=== PATIENT | female | born 1975 | race Hispanic/Latino ===

== ENCOUNTER 2016-06-01 12:52 | Emergency (ER) | payer OTHER ==
[2016-06-01] MEDS ORDERED: NORCO 5/325 PO ONE (16:48)
[2016-06-01] MEDS ORDERED: TORADOL IM ONE (16:48)
--- NOTE | 2016-06-01 16:51 | Emergency Department Report ---
HPI - General Chief Complaint: Fever Time Seen by Provider: 06/01/16 16:27 - HPI HPI: 40-year-old female presents today with bodyaches fatigue, fever, headache, 1 episode of vomiting since last night. Tmax = 102. Also admits to cough, nasal congestion, chills. Patient tried Tylenol without relief, last dose at 1100 hrs. Patient states that she has history of anxiety and is feeling anxious at this time. Patient takes Klonopin 0.5 mg. Denies history of similar symptoms. Patient states that she has not gotten her flu shot this year. Denies chest pain, shortness of breath, abdominal pain. Patient states that she may have a viral infection and would like something for her body aches. ED Past Medical Hx - Past Medical History Previous Medical History?: Yes Hx Psychiatric Treatment: Yes (PTSD, bipolar) - Surgical History Past Surgical History?: No - Social History Smoking Status: Never Smoker Substance Use Type: None - Medications Home Medications: Home Medications Medication Instructions Recorded Confirmed Last Taken Type Ketorolac [Toradol] 10 mg PO Q6H PRN #14 tablet 06/01/16 Unknown Rx Ondansetron [Zofran Odt] 4 mg PO TID #10 tab.rapdis 06/01/16 Unknown Rx ED Review of Systems ROS: Stated complaint: FEVER/COUGH/BODY ACHE/FATIGUE Other details as noted in HPI Constitutional: chills, fever, malaise Eyes: denies: eye pain ENT: congestion. denies: ear pain, throat pain Respiratory: cough Cardiovascular: denies: chest pain, palpitations Endocrine: no symptoms reported Gastrointestinal: vomiting. denies: abdominal pain Neurological: headache. denies: weakness, numbness, paresthesias Physical Exam - Physical Exam Vital Signs: Vital Signs 06/01/16 13:00 Temperature 97.9 F Pulse Rate 111 H Respiratory 18 Rate Blood Pressure 118/75 O2 Sat by Pulse 98 Oximetry Physical Exam: GENERAL: The patient is well-developed and well-nourished. Patient is in NAD. HEAD: Normocephalic. Atraumatic. EYES: Extraocular motions are intact, PERRL. EARS: External auditory canals and tympanic membranes clear; hearing grossly intact. NOSE: Normal nasal mucosa with no nasal discharge. THROAT: No erythema, swelling or exudates. NECK: Supple, nontender, without lymphadenopathy. No meningitic signs are noted. CHEST/LUNGS: Clear to auscultation throughout. HEART/CARDIOVASCULAR: Regular rate and rhythm. ABDOMEN: Abdomen is soft, nontender. No guarding or rebound tenderness. EXTREMITIES: Peripheral pulses intact. Capillary refill less than 2 seconds. NEURO: Alert and oriented 3, normal gait, fluid speech, EOMs intact, normal facial sensation, strength exam 5/5 upper and lower extremities, GCS equals 15, finger to nose normal, negative Romberg test. ED Course Vital Signs 06/01/16 13:00 Temperature 97.9 F Pulse Rate 111 H Respiratory 18 Rate Blood Pressure 118/75 O2 Sat by Pulse 98 Oximetry ED Medical Decision Making - Medical Decision Making 40-year-old female presents today with headache, body aches, fever. Patient states that she does not think she has the flu and refuses rapid flu test. Her physical exam is unremarkable. Patient reports 100% symptomatic relief post medication. Patient requests Toradol for home prescription. Patient is in no acute distress at this time. She will be discharged home and is encouraged to follow up with a primary care provider. He will be sent home on Toradol and Zofran and is encouraged to return to the emergency room for any worsening symptoms. Critical care attestation.: If time is entered above; I have spent that time in minutes in the direct care of this critically ill patient, excluding procedure time. ED Disposition Clinical Impression: Body aches Disposition: DISCHARGED TO HOME OR SELFCARE Is pt being admited?: No Does the pt Need Aspirin: No Condition: Stable Instructions: Viral Syndrome (ED), Acute Nausea and Vomiting (ED) Additional Instructions: Follow-up with primary care provider. Return to the emergency department if symptoms worsen. Prescriptions: Ketorolac [Toradol] 10 mg PO Q6H PRN #14 tablet PRN Reason: Pain Ondansetron [Zofran Odt] 4 mg PO TID #10 tab.rapdis Referrals: PRIMARY CARE, [Primary Care Provider] - 3-5 Days [facility] [Outside] - 3-5 Days Forms: Work/School Release Form(ED), Accompanied Note Time of Disposition: 17:52
[2016-06-01 18:06] VITALS: BP 120/78
== END 2016-06-01 18:05 | disposition home or self-care (01) ==
LOC: ED 12:52
DX: M79.1 Myalgia (principal); F31.9 Bipolar disorder, unspecified; F43.10 Post-traumatic stress disorder, unspecified
CPT/HCPCS: 96372; 99282; J1885

== ENCOUNTER 2016-06-01 21:06 | Emergency (ER) | payer MEDICAID, OTHER ==
[2016-06-01 22:11] LABS: Bacteria,Urine 1+ /HPF (Negative); Bilirubin,Urine NEG (Negative); Blood,Urine NEG (Negative); Ketones,Urine NEG (Negative); Leukocyte Esterase,Urine NEG (Negative); Nitrite,Urine NEG (Negative); Protein,Urine <15 mg/dL mg/dL (Negative); Urobilinogen,Urine < 2.0 mg/dL (<2.0)
[2016-06-01 22:22] LABS: Basophils % (Auto) 0.6 % (0.0-1.8); Hematocrit 38.5 % (30.3-42.9); Hemoglobin 13.2 gm/dl (10.1-14.3); Mean Corpuscular HGB Conc 34 % (30-34); Mean Corpuscular Hemoglobin 33 pg (28-32); Mean Corpuscular Volume 95 fl (79-97); Platelet Count 276 K/mm3 (140-440); Red Blood Count 4.04 M/mm3 (3.65-5.03); Red Cell Distribution Width 13.4 % (13.2-15.2); White Blood Count 9.5 K/mm3 (4.5-11.0)
[2016-06-01 22:40] LABS: Blood Urea Nitrogen 14 mg/dL (7-17); Calcium 9.1 mg/dL (8.4-10.2); Carbon Dioxide 29 mmol/L (22-30); Chloride 98.2 mmol/L (98-107); Glucose 103 mg/dL (65-100); Potassium 3.6 mmol/L (3.6-5.0); Sodium 141 mmol/L (137-145)
[2016-06-01 22:51] LABS: Anion Gap 17 mmol/L
[2016-06-02 01:05] VITALS: BP 113/63
[2016-06-02] MEDS ORDERED: NACL 0.9% 1000 ML 1,000 ML IV ONE (02:11)
[2016-06-02] MEDS ORDERED: PERCOCET 5/325 PO ONE (02:11)
[2016-06-02] MEDS ORDERED: ZOFRAN IV ONE (02:12)
--- NOTE | 2016-06-02 02:18 | Emergency Department Report ---
ED General Adult HPI - General Chief complaint: Pain General Stated complaint: FLU LIKE SYMPTOMS Time Seen by Provider: 06/02/16 01:48 Source: patient Mode of arrival: Ambulatory Limitations: No Limitations - History of Present Illness Initial comments: Patient reports three-day history of cough mild congestion and mild sore throat and fever. she is having severe body aches. She was seen this morning and was given Toradol with subjective improvement. She indicates over the course of the day though that her fevers returned and she is feeling quite uncomfortable. She has not taken anything recently for pain or for fever. She feels nauseated as well. Onset/Timin -: days(s) Location: lower extremity Radiation: non-radiation Severity scale (0 -10): 8 Quality: aching Consistency: constant Improves with: none Worsens with: none Treatments Prior to Arrival: none - Related Data Previous Rx's Medication Instructions Recorded Last Taken Type Ketorolac [Toradol] 10 mg PO Q6H PRN #14 tablet 06/01/16 Unknown Rx Ondansetron [Zofran Odt] 4 mg PO TID #10 tab.rapdis 06/01/16 Unknown Rx HYDROcodone/APAP 5-325 [[place] 2 each PO Q6HR #20 tablet 06/02/16 Unknown Rx 5/325] Allergies Allergy/AdvReac Type Severity Reaction Status Date / Time diphenhydramine HCl AdvReac Unknown Verified 06/01/16 13:03 [From [place]] ED Review of Systems ROS: Stated complaint: FLU LIKE SYMPTOMS Other details as noted in HPI Constitutional: chills, fever, malaise Eyes: denies: eye pain, eye discharge, vision change ENT: throat pain. denies: ear pain Respiratory: cough. denies: shortness of breath, wheezing Cardiovascular: denies: chest pain, palpitations Endocrine: no symptoms reported Gastrointestinal: denies: abdominal pain, nausea, diarrhea Genitourinary: denies: urgency, dysuria, discharge Musculoskeletal: myalgia. denies: back pain, joint swelling, arthralgia Skin: denies: rash, lesions Neurological: denies: headache, weakness, paresthesias Psychiatric: denies: anxiety, depression Hematological/Lymphatic: denies: easy bleeding, easy bruising ED Past Medical Hx - Past Medical History Hx Psychiatric Treatment: Yes (PTSD, vladimir,depression) Additional medical history: multiple sclorsis - Surgical History Past Surgical History?: No - Social History Smoking Status: Former Smoker Substance Use Type: None - Medications Home Medications: Home Medications Medication Instructions Recorded Confirmed Last Taken Type Ketorolac [Toradol] 10 mg PO Q6H PRN #14 tablet 06/01/16 Unknown Rx Ondansetron [Zofran Odt] 4 mg PO TID #10 tab.rapdis 06/01/16 Unknown Rx HYDROcodone/APAP 5-325 [[place] 2 each PO Q6HR #20 tablet 06/02/16 Unknown Rx 5/325] ED Physical Exam - General Limitations: No Limitations General appearance: alert, in distress (mild due to body pains) - Head Head exam: Present: atraumatic, normocephalic - Eye Eye exam: Present: normal appearance, EOMI. Absent: scleral icterus - ENT ENT exam: Present: mucous membranes moist, other (mild pharyngeal edema) - Neck Neck exam: Present: normal inspection. Absent: tenderness, lymphadenopathy, thyromegaly - Respiratory Respiratory exam: Present: normal lung sounds bilaterally, other (harsh cough). Absent: respiratory distress - Cardiovascular Cardiovascular Exam: Present: regular rate, normal rhythm. Absent: systolic murmur, diastolic murmur, rubs, gallop - GI/Abdominal GI/Abdominal exam: Present: soft, normal bowel sounds - Extremities Exam Extremities exam: Present: normal inspection, other (mild tenderness to large group muscles) - Back Exam Back exam: Present: normal inspection - Neurological Exam Neurological exam: Present: alert, oriented X3 - Psychiatric Psychiatric exam: Present: normal affect, normal mood - Skin Skin exam: Present: warm, dry, intact, normal color. Absent: rash ED Course Vital Signs 06/01/16 06/02/16 06/02/16 21:13 01:03 01:05 Temperature 99.2 F 102.8 F H Pulse Rate 112 H 118 H Respiratory 18 20 Rate Blood Pressure 112/71 Blood Pressure 113/63 [Left] O2 Sat by Pulse 100 100 100 Oximetry - Reevaluation(s) Reevaluation #1: 06/02/16 02:16 Patient is uncomfortable appearing here. She appears to have a viral syndrome. I suspect influenza. She has outside of the treatment window. I will not test directly for influenza. Given symptomatic treatment here. We'll send home with some pain medication. Labs are noted here. No specific abnormalities appreciated. Patient did spike fever here was given Percocet for fever/pain 06/02/16 02:17 06/02/16 05:50 Subjectively much improved at the time of discharge. Comfortable pacing around the sears. ED Medical Decision Making - Lab Data Result diagrams: 06/01/16 21:32 06/01/16 21:32 - Radiology Data interpreted by me: Negative for acute pathology. No infiltrate and normal cardiac silhouette. Critical care attestation.: If time is entered above; I have spent that time in minutes in the direct care of this critically ill patient, excluding procedure time. ED Disposition Clinical Impression: Acute viral syndrome, Body aches Disposition: DISCHARGED TO HOME OR SELFCARE Is pt being admited?: No Does the pt Need Aspirin: No Condition: Stable Instructions: Influenza (ED) Additional Instructions: Drink plenty of fluids. Rest. Take Tylenol as needed for fever or [place] as needed for fever. [place] does have Tylenol in it. Prescriptions: HYDROcodone/APAP 5-325 [[place] 5/325] 2 each PO Q6HR #20 tablet Referrals: PRIMARY CARE, [Primary Care Provider] - 3-5 Days Forms: Work/School Release Form(ED) Time of Disposition: 03:40
--- NOTE | 2016-06-02 07:35 | XRay Report ---
ROUTINE CHEST, TWO VIEWS: HISTORY: Cough. The trachea, heart, mediastinal contour, lung rucker and bony thorax are unremarkable. IMPRESSION: Unremarkable chest x-ray.
== END 2016-06-02 04:50 | disposition home or self-care (01) ==
LOC: ED 21:06
DX: B34.9 Viral infection, unspecified (principal); M79.1 Myalgia; Z87.891 Personal history of nicotine dependence
CPT/HCPCS: 36415; 71020; 80048; 81001; 81025; 85025; 96361; 96374; 99284; J2405; J7030

== ENCOUNTER 2016-06-07 14:49 | Emergency (ER) | payer MEDICAID, OTHER ==
[2016-06-07 15:55] VITALS: BP 106/62
[2016-06-07] MEDS ORDERED: TORADOL IM ONE (16:43)
--- NOTE | 2016-06-07 16:49 | Emergency Department Report ---
HPI - General Chief Complaint: Upper Respiratory Infection Time Seen by Provider: 06/07/16 16:19 - HPI HPI: 40 y/o female complain of generalized body ache x 2 weeks .pt was seen on jun 02, 2015 and was told she had the flu .pt state that she continue to ache and has run out of pain medication. pt was given norco 10mg .pt denies any chest pain .denies any n/v/d at present .denies any acute distress at [facility] ED Past Medical Hx - Past Medical History Hx Psychiatric Treatment: Yes (PTSD, vladimir,depression) Additional medical history: multiple sclorsis - Social History Smoking Status: Former Smoker Substance Use Type: None - Medications Home Medications: Home Medications Medication Instructions Recorded Confirmed Last Taken Type Ketorolac [Toradol] 10 mg PO Q6H PRN #14 tablet 06/01/16 Unknown Rx Ondansetron [Zofran Odt] 4 mg PO TID #10 tab.rapdis 06/01/16 Unknown Rx HYDROcodone/APAP 5-325 [[place] 2 each PO Q6HR #20 tablet 06/02/16 Unknown Rx 5/325] Acetaminophen/Codeine [Tylenol #3] 1 tab PO Q4HR PRN #10 tablet 06/07/16 Unknown Rx ED Review of Systems ROS: Stated complaint: FLU/PAIN/CONGESTION Other details as noted in HPI Constitutional: other (generalized body ache ). denies: chills, fever Eyes: denies: eye pain, eye discharge, vision change ENT: denies: ear pain, throat pain Respiratory: denies: cough, shortness of breath, wheezing Cardiovascular: denies: chest pain, palpitations Endocrine: no symptoms reported Gastrointestinal: denies: abdominal pain, nausea, diarrhea Genitourinary: denies: urgency, dysuria, discharge Musculoskeletal: denies: back pain, joint swelling, arthralgia Skin: denies: rash, lesions Neurological: denies: headache, weakness, paresthesias Psychiatric: denies: anxiety, depression Hematological/Lymphatic: denies: easy bleeding, easy bruising Physical Exam - Physical Exam Vital Signs: Vital Signs 06/07/16 15:52 Temperature 98 F Pulse Rate 76 Respiratory 18 Rate Blood Pressure 106/62 O2 Sat by Pulse 100 Oximetry Physical Exam: GENERAL: The patient is well-developed and well-nourished. Patient is in NAD. HENT: Normocephalic. Atraumatic. Patient has moist mucous membranes. Throat: No erythema, swelling or exudates. Ears:Tympanic membranes pearly [place] ,intact , and free of exudate and erythema . EYES: Extraocular motions are intact, PERRL NECK: Supple. No meningitic signs are noted. There is no adenopathy noted. CHEST/LUNGS: Clear to auscultation bilaterally. No wheezing, rales or rhonchi noted. There is no respiratory distress noted. HEART/CARDIOVASCULAR: Regular rate and rhythm. Normal S1 S2. No murmurs, rubs , clicks, or gallops. ABDOMEN: Abdomen is soft, nontender.. Bowel sounds normoactive. There is no abdominal distention. Negative rebound tenderness. : Deferred. SKIN: There is no rash. There is no edema. There is no diaphoresis.Normal skin turgor NEURO: The patient is A&Ox3. The patient has no focal neurologic deficits. MUSCULOSKELETAL: There is no tenderness or deformity. There is no limitation range of motion. posture erect.Spine aligned,no deformities. PSYCH: Pt has appropriate mood and affect. ED Course Vital Signs 06/07/16 15:52 Temperature 98 F Pulse Rate 76 Respiratory 18 Rate Blood Pressure 106/62 O2 Sat by Pulse 100 Oximetry ED Medical Decision Making - Medical Decision Making generalized body ache ,pt was evaluate on the May.pt state she out pain medication -[place] 10mg will give pt tylenol #3 for pain control Critical care attestation.: If time is entered above; I have spent that time in minutes in the direct care of this critically ill patient, excluding procedure time. ED Disposition Clinical Impression: Body aches Disposition: DISCHARGED TO HOME OR SELFCARE Is pt being admited?: No Does the pt Need Aspirin: No Condition: Stable Instructions: Musculoskeletal Pain (ED) Prescriptions: Acetaminophen/Codeine [Tylenol #3] 1 tab PO Q4HR PRN #10 tablet PRN Reason: Pain Referrals: PRIMARY CARE, [Primary Care Provider] - 3-5 Days [facility] [Outside] - 3-5 Days Forms: Work/School Release Form(ED) Time of Disposition: 16:50
== END 2016-06-07 17:02 | disposition home or self-care (01) ==
LOC: ED 14:49
DX: M79.1 Myalgia (principal); F43.10 Post-traumatic stress disorder, unspecified; F32.9 Major depressive disorder, single episode, unspecified; Z87.891 Personal history of nicotine dependence
CPT/HCPCS: 96372; 99282; J1885

== ENCOUNTER 2016-07-10 11:23 | Emergency (ER) | payer MEDICAID, OTHER ==
[2016-07-10] MEDS ORDERED: MOTRIN PO ONE (14:09)
[2016-07-10] MEDS ORDERED: VALIUM PO ONE (14:09)
--- NOTE | 2016-07-10 15:42 | Emergency Department Report ---
Entered by AD YU, acting as scribe for NAOMI VELAZQUEZ PA. ED Anxiety HPI - General Chief Complaint: Anxiety Stated Complaint: PANIC ATTACKS / TENSE MUSCLES Source: patient Mode of arrival: Ambulatory - History of Present Illness Initial Comments: 40 year old female with PMHx anxiety presents to the ED for evaluation of anxiety exacerbation today. She states episode was precipitated by a combination of life stresses. Patient reports she has a scheduled appointment with her psychologist tomorrow. Previous similar episodes were alleviated with Xanax or Klonopin but she is not prescribed medication at this time. Denies fever, N/V, abdominal pain, chest pain, and shortness of breath. MD Complaint: anxiety -: This morning Symptoms: muscle cramps Place: home Previous History of Same: Yes Quality: worsening Provoking factors: other (combination of life stresss) Associated symptoms: denies: chest pain, shortness of breath - Related Data Home Medications: Previous Rx's Medication Instructions Recorded Last Taken Type Ketorolac [Toradol] 10 mg PO Q6H PRN #14 tablet 06/01/16 Unknown Rx Ondansetron [Zofran Odt] 4 mg PO TID #10 tab.rapdis 06/01/16 Unknown Rx HYDROcodone/APAP 5-325 [[place] 2 each PO Q6HR #20 tablet 06/02/16 Unknown Rx 5/325] Acetaminophen/Codeine [Tylenol #3] 1 tab PO Q4HR PRN #10 tablet 06/07/16 Unknown Rx Allergies/Adverse Reactions: Allergies Allergy/AdvReac Type Severity Reaction Status Date / Time diphenhydramine HCl Allergy Unknown Verified 06/07/16 15:52 [From Benadryl] haloperidol [From Haldol] Allergy Unknown Verified 07/10/16 12:03 haloperidol lactate Allergy Unknown Verified 07/10/16 12:03 [From Haldol] quetiapine fumarate Allergy Unknown Verified 07/10/16 12:03 [From Seroquel] ED Past Medical Hx - Past Medical History Hx Psychiatric Treatment: Yes (PTSD, vladimir,depression) Additional medical history: multiple sclorsis - Surgical History Past Surgical History?: No - Social History Smoking Status: Current Every Day Smoker Substance Use Type: None - Medications Home Medications: Home Medications Medication Instructions Recorded Confirmed Last Taken Type Ketorolac [Toradol] 10 mg PO Q6H PRN #14 tablet 06/01/16 Unknown Rx Ondansetron [Zofran Odt] 4 mg PO TID #10 tab.rapdis 06/01/16 Unknown Rx HYDROcodone/APAP 5-325 [[place] 2 each PO Q6HR #20 tablet 06/02/16 Unknown Rx 5/325] Acetaminophen/Codeine [Tylenol #3] 1 tab PO Q4HR PRN #10 tablet 06/07/16 Unknown Rx ED Physical Exam - General Limitations: No Limitations General appearance: other (The patient is well-developed and well-nourished. Patient is in NAD.) - Neck Neck exam: Present: normal inspection, full ROM. Absent: tenderness - Respiratory Respiratory exam: Present: normal lung sounds bilaterally. Absent: respiratory distress, wheezes, rales, rhonchi - Cardiovascular Cardiovascular Exam: Present: regular rate, normal rhythm, normal heart sounds. Absent: systolic murmur, diastolic murmur, rubs, gallop - GI/Abdominal GI/Abdominal exam: Present: soft. Absent: distended, tenderness, guarding, rebound - Back Exam Back exam: Present: normal inspection, full ROM, muscle spasm. Absent: tenderness, paraspinal tenderness, vertebral tenderness - Neurological Exam Neurological exam: Present: alert, oriented X3 - Psychiatric Psychiatric exam: Present: anxious ED Course Vital Signs 07/10/16 07/10/16 12:03 14:19 Temperature 97.5 F L Pulse Rate 75 Respiratory 18 20 Rate Blood Pressure 101/61 O2 Sat by Pulse 100 Oximetry ED Medical Decision Making - Lab Data Vital Signs 07/10/16 07/10/16 12:03 14:19 Temperature 97.5 F L Pulse Rate 75 Respiratory 18 20 Rate Blood Pressure 101/61 O2 Sat by Pulse 100 Oximetry - Medical Decision Making 40 year old female with PMHx anxiety presents to the ED complaining of acute anxiety exacerbation today. Patient was given Valium and ibuprofen and reports symptomatic relief. Patient is in no acute distress at this time. She will be discharged home and is encouraged to follow up with a primary care provider and psychologist. She is encouraged to return to the emergency room for any worsening symptoms. ED Disposition Clinical Impression: Anxiety Disposition: DISCHARGED TO HOME OR SELFCARE Is pt being admited?: No Does the pt Need Aspirin: No Condition: Stable Instructions: Anxiety (ED) Additional Instructions: Follow-up with primary care provider and psychologist. Return to the emergency department if symptoms worsen. Referrals: PRIMARY CARE, [Primary Care Provider] - 3-5 Days STALIN HORAN MD [Referring] - 3-5 Days GLENNY QUIJANO MD [Referring] - 3-5 Days Forms: Work/School Release Form(ED) Time of Disposition: 15:40 This documentation as recorded by the GIGI perez REBEKAH,accurately reflects the service I personally performed and the decisions made by CAROLINE duval NATASHA, PA.
[2016-07-10 15:51] VITALS: BP 106/62
== END 2016-07-10 15:52 | disposition home or self-care (01) ==
LOC: ED 11:23
DX: F41.9 Anxiety disorder, unspecified (principal); F32.9 Major depressive disorder, single episode, unspecified; F43.10 Post-traumatic stress disorder, unspecified; F17.200 Nicotine dependence, unspecified, uncomplicated; Z88.8 Allergy status to other drugs, medicaments and biological substances
CPT/HCPCS: 99282

== ENCOUNTER 2016-08-28 12:23 | Emergency (ER) | payer MEDICAID ==
[2016-08-28 16:08] LABS: Basophils % (Auto) 0.9 % (0.0-1.8); Eosinophils % (Auto) 5.2 % (0.0-4.3); Hematocrit 39.7 % (30.3-42.9); Hemoglobin 13.3 gm/dl (10.1-14.3); Mean Corpuscular HGB Conc 34 % (30-34); Mean Corpuscular Hemoglobin 33 pg (28-32); Mean Corpuscular Volume 99 fl (79-97); Platelet Count 253 K/mm3 (140-440); Red Cell Distribution Width 12.6 % (13.2-15.2); White Blood Count 5.1 K/mm3 (4.5-11.0)
[2016-08-28 16:25] LABS: Urine Drugs of Abuse Note Disclamer
[2016-08-28 16:27] LABS: Anion Gap 13 mmol/L; BUN/Creatinine Ratio 15.71; Blood Urea Nitrogen 11 mg/dL (7-17); Calcium 8.8 mg/dL (8.4-10.2); Carbon Dioxide 30 mmol/L (22-30); Chloride 104.2 mmol/L (98-107); Glucose 93 mg/dL (65-100); Potassium 3.8 mmol/L (3.6-5.0); Sodium 143 mmol/L (137-145)
[2016-08-28 16:57] LABS: Bilirubin,Urine NEG (Negative); Blood,Urine NEG (Negative); Ketones,Urine NEG (Negative); Leukocyte Esterase,Urine NEG (Negative); Nitrite,Urine NEG (Negative); Protein,Urine <15 mg/dL mg/dL (Negative); RBC,Urine < 1.0 /HPF (0.0-6.0); Urobilinogen,Urine < 2.0 mg/dL (<2.0)
--- NOTE | 2016-08-28 20:50 | Emergency Department Report ---
ED Psych HPI - General Chief Complaint: Medical Clearance Stated Complaint: DETOX Time Seen by Provider: 08/28/16 19:58 Source: patient Mode of arrival: Ambulatory - History of Present Illness Initial Comments: Patient is a 40-year-old female with history of alcoholism presenting to the ER for medical clearance. Patient reports [facility]. Reports she drinks 2 bottles of wine every day last drink was 11 AM this morning. Patient denies suicidal ideation and homicidal ideation, hallucinations, or delusions. Patient also denies substance abuse. Otherwise no other complaints - Related Data Home Medications Medication Instructions Recorded Confirmed Last Taken Duloxetine HCl [Cymbalta] 20 mg PO QDAY 08/28/16 08/28/16 Unknown Gabapentin [Neurontin] 600 mg PO DAILY 08/28/16 08/28/16 Unknown Allergies Allergy/AdvReac Type Severity Reaction Status Date / Time diphenhydramine HCl Allergy Unknown Verified 06/07/16 15:52 [From Benadryl] haloperidol [From Haldol] Allergy Unknown Verified 07/10/16 12:03 haloperidol lactate Allergy Unknown Verified 07/10/16 12:03 [From Haldol] quetiapine fumarate Allergy Unknown Verified 07/10/16 12:03 [From Seroquel] ED Review of Systems ROS: Stated complaint: DETOX Other details as noted in HPI Comment: All other systems reviewed and negative ED Past Medical Hx - Past Medical History Hx Psychiatric Treatment: Yes (PTSD, vladimir,depression) Additional medical history: multiple sclorsis - Surgical History Past Surgical History?: No - Social History Smoking Status: Current Every Day Smoker Substance Use Type: Alcohol - Medications Home Medications: Home Medications Medication Instructions Recorded Confirmed Last Taken Type Duloxetine HCl [Cymbalta] 20 mg PO QDAY 08/28/16 08/28/16 Unknown History Gabapentin [Neurontin] 600 mg PO DAILY 08/28/16 08/28/16 Unknown History ED Physical Exam - General Limitations: No Limitations General appearance: alert, in no apparent distress, other (intoxicated) - Head Head exam: Present: atraumatic, normocephalic - Eye Eye exam: Present: normal appearance, nystagmus. Absent: scleral icterus, conjunctival injection - ENT ENT exam: Present: mucous membranes moist - Neck Neck exam: Present: normal inspection - Respiratory Respiratory exam: Present: normal lung sounds bilaterally. Absent: respiratory distress - Cardiovascular Cardiovascular Exam: Present: regular rate, normal rhythm. Absent: systolic murmur, diastolic murmur, rubs, gallop - GI/Abdominal GI/Abdominal exam: Present: soft, normal bowel sounds - Extremities Exam Extremities exam: Present: normal inspection - Back Exam Back exam: Present: normal inspection - Neurological Exam Neurological exam: Present: alert, oriented X3, CN II-XII intact, other ( slurred speech). Absent: motor sensory deficit - Psychiatric Psychiatric exam: Present: normal affect, normal mood - Skin Skin exam: Present: warm, dry, intact, normal color. Absent: rash ED Course Vital Signs 08/28/16 08/28/16 08/28/16 15:49 19:35 19:40 Temperature 98.2 F Pulse Rate 89 92 H 92 H Respiratory 18 21 20 Rate Blood Pressure 111/70 99/47 Blood Pressure [Right] O2 Sat by Pulse 100 96 96 Oximetry 08/28/16 08/28/16 08/28/16 19:47 19:50 20:00 Temperature Pulse Rate 93 H 93 H 93 H Respiratory 22 18 17 Rate Blood Pressure 109/67 105/65 Blood Pressure 99/47 [Right] O2 Sat by Pulse 97 96 98 Oximetry 08/28/16 08/28/16 08/28/16 20:10 20:29 20:30 Temperature Pulse Rate 89 84 84 Respiratory 18 19 17 Rate Blood Pressure 105/65 98/63 98/63 Blood Pressure [Right] O2 Sat by Pulse 98 98 98 Oximetry 08/28/16 08/28/16 08/28/16 20:40 20:50 21:00 Temperature Pulse Rate 89 92 H 90 Respiratory 18 18 17 Rate Blood Pressure 98/63 99/58 105/60 Blood Pressure [Right] O2 Sat by Pulse 96 96 97 Oximetry 08/28/16 08/28/16 08/28/16 21:10 21:20 21:30 Temperature Pulse Rate 90 89 86 Respiratory 18 18 16 Rate Blood Pressure 105/65 98/61 99/54 Blood Pressure [Right] O2 Sat by Pulse 96 95 95 Oximetry 08/28/16 08/28/16 08/28/16 21:40 21:50 22:00 Temperature Pulse Rate 85 89 84 Respiratory 17 17 16 Rate Blood Pressure 99/54 93/44 87/39 Blood Pressure [Right] O2 Sat by Pulse 95 95 95 Oximetry 08/28/16 08/28/16 08/28/16 22:10 22:20 22:30 Temperature Pulse Rate 84 83 82 Respiratory 17 17 16 Rate Blood Pressure 87/39 79/33 75/33 Blood Pressure [Right] O2 Sat by Pulse 95 95 96 Oximetry 08/28/16 08/28/16 08/28/16 22:40 22:50 23:00 Temperature Pulse Rate 84 85 84 Respiratory 16 16 17 Rate Blood Pressure 82/34 85/33 85/45 Blood Pressure [Right] O2 Sat by Pulse 95 95 96 Oximetry 08/28/16 08/28/16 08/28/16 23:10 23:20 23:30 Temperature Pulse Rate 86 85 84 Respiratory 17 18 16 Rate Blood Pressure 85/45 80/40 78/40 Blood Pressure [Right] O2 Sat by Pulse 95 95 95 Oximetry 08/28/16 08/28/16 08/28/16 23:40 23:50 23:52 Temperature Pulse Rate 85 88 86 Respiratory 16 16 15 Rate Blood Pressure 78/40 88/47 88/47 Blood Pressure [Right] O2 Sat by Pulse 96 95 95 Oximetry 08/29/16 08/29/16 08/29/16 00:00 00:10 00:20 Temperature Pulse Rate 83 81 82 Respiratory 15 14 15 Rate Blood Pressure 80/47 80/47 83/47 Blood Pressure [Right] O2 Sat by Pulse 98 99 96 Oximetry ED Medical Decision Making - Lab Data Result diagrams: 08/28/16 15:46 08/28/16 15:55 - EKG Data -: EKG Interpreted by [facility] EKG shows normal: sinus rhythm, axis (normal axis), intervals (Qtc:459ms), ST-T waves ((-)ST changes, no STEMI) - Medical Decision Making Patient's SBP remains 80 to 90's, patient given NS IVF bolus, patients remains with normal HR. Case d/w [facility] and patient to return for continue alcohol detox Critical care attestation.: If time is entered above; I have spent that time in minutes in the direct care of this critically ill patient, excluding procedure time. ED Disposition Clinical Impression: Alcohol intoxication Disposition: DC/TX PSY HOSP/PSY UNIT Is pt being admited?: No Condition: Stable
[2016-08-28] MEDS ORDERED: NACL 0.9% 1000 ML 1,000 ML IV ONE (23:33)
[2016-08-29 00:39] VITALS: BP 94/57
== END 2016-08-29 00:48 ==
LOC: ED 12:23
DX: F10.129 Alcohol abuse with intoxication, unspecified (principal); F32.9 Major depressive disorder, single episode, unspecified; F17.200 Nicotine dependence, unspecified, uncomplicated; Z88.8 Allergy status to other drugs, medicaments and biological substances
CPT/HCPCS: 36415; 80048; 80307; 81001; 84703; 85025; 93005; 93010; 96360; 99285; G0480; J7030; 80320